=== PATIENT | female | born 1975 | race Hispanic/Latino ===

== ENCOUNTER 2019-03-22 10:23 | Emergency (ER) | payer OTHER, SELFPAY ==
[2019-03-22 10:51] LABS: #Eosinphils 0.1 thou/uL (0.0-0.7); #Lymphocytes 0.9 thou/uL (1.20-3.40); #Monocytes 0.3 thou/uL (0.11-0.59); #Neutrophils 7.6 thou/uL (1.40-6.50); %Basophils 0.5 % (0.0-1.0); %Eosinophils 0.7 % (0.0-10.0); %Lymphocytes 9.9 % (21.0-51.0); %Monocytes 3.5 % (0.0-10.0); %Neutrophils 85.3 % (42.0-75.0); Hemoglobin 13.6 g/dL (12.0-16.0); Mean Corpuscular HGB CONC 34.1 g/dL (32.0-36.0); Mean Corpuscular Hemoglobin 27.7 pg (27.0-31.0); Mean Platelet Volume 8.7 fL (7.4-10.4); Platelet Count 291 thou/uL (130-400); RBC Distribution Width 14.7 % (11.5-14.5); Red Blood Cell (RBC) Count 4.92 mill/uL (4.20-5.40); White Blood Cell (WBC) Count 8.9 thou/uL (4.8-10.8)
[2019-03-22] MEDS ORDERED: Morphine 4 MG/ML VIAL ONE (11:02)
[2019-03-22] MEDS ORDERED: Ondansetron PF 4 MG/2 ML Vial ONE (11:02)
--- NOTE | 2019-03-22 11:10 | RAD ---
RADIOGRAPH CHEST 1 VIEW: DATE: 03/22/2019 HISTORY: 43-year-old female with chest pain FINDINGS: There are no airspace densities, pulmonary edema, pneumothorax, or cardiomegaly. The lateral costophr enic angles are sharp. IMPRESSION: No acute cardiopulmonary findings.
[2019-03-22 11:12] LABS: ALT (SGPT) 11 U/L (8-55); AST (SGOT) 16 U/L (5-34); Albumin 4.5 g/dL (3.5-5.0); Alkaline Phosphatase 103 U/L (40-110); Anion Gap 17 mmol/L (10-20); BUN (Urea Nitrogen) 9 mg/dL (7.0-18.7); Bilirubin, Total 0.7 mg/dL (0.2-1.2); CK (CPK) 36 U/L (29-168); Calc. Creatinine Clearance 0 mL/min (70-130); Calcium 9.7 mg/dL (7.8-10.44); Carbon Dioxide 20 mmol/L (22-29); Chloride 100 mmol/L (98-107); Estimated GFR-MDRD 87; Globulin 3.4 g/dL (2.4-3.5); Glucose 284 mg/dL (70-105); Lipase 10 U/L (8-78); Potassium 4.5 mmol/L (3.5-5.1); Protein, Total 7.9 g/dL (6.0-8.3); Sodium 132 mmol/L (136-145)
--- NOTE | 2019-03-22 12:17 | ULT ---
ULTRASOUND ABDOMEN LIMITED: (RIGHT UPPER QUADRANT) DATE: 03/22/2019 HISTORY: 43-year-old female with right upper quadrant abdominal pain FINDINGS: Gallbladder:Contains several gallstones, apparently immobile. Largest one is 20 mm. Wall thickness 3 mm. No pericholecystic fluid. Positive tenderness over gallbladder. Distended lumen. Common duct: 4 mm. Liver:Visualized portions have normal parenchymal echogenicity. Much of liver parenchyma obscured due to overlying bowel gas. Pancreas:Completely obscured by shadowing from overlying bowel gas. Right kidney:No hydronephrosis IMPRESSION: 1. Positive for cholelithiasis 2. Possibility of at least one of the gallstones lodged in the gallbladder body/neck junction.
[2019-03-22] MEDS ORDERED: Ketorolac Tromethamine 30 MG/ML VIAL ONE (12:43)
[2019-03-22 14:01] LABS: Bacteria/HPF 2+ HPF (None Seen); Bilirubin Negative (Negative); Blood, Urine Negative (Negative); Clarity Turbid (Clear); Glucose, Urine (Dipstick) Greater than 1000 mg/dL (Negative); Leukocyte Negative Leu/uL (Negative); Nitrite 2+ (Negative); Protein, Urine (Dipstick) Negative (Neg-Trace); RBC/HPF 0-3 HPF (0-3); Urobilinogen Normal mg/dL (Less than 2); WBC/HPF 0-3 HPF (0-3)
== END 2019-03-22 14:11 | disposition home or self-care (01) ==
LOC: ERS 10:23
DX: K80.20 Calculus of gallbladder without cholecystitis without obstruction (principal); E11.9 Type 2 diabetes mellitus without complications; Z79.4 Long term (current) use of insulin
CPT/HCPCS: 71045; 76705; 80053; 81003; 81015; 82550; 83690; 84484; 85025; 93005; 94760; 96361; 96374; 96375; J1885; J2270; J2405

== ENCOUNTER 2021-10-09 09:54 | Inpatient (IN) | payer MEDICAID, SELFPAY ==
[2021-10-09] MEDS ORDERED: Iopamidol-370 76% 500 ML 1 ML ONE (10:39)
[2021-10-09 10:46] LABS: #Lymphocytes 0.7 thou/uL (1.20-3.40); #Monocytes 0.9 thou/uL (0.11-0.59); #Neutrophils 11.1 thou/uL (1.40-6.50); %Eosinophils 0.3 % (0.0-10.0); %Lymphocytes 5.4 % (21.0-51.0); %Monocytes 7.3 % (0.0-10.0); %Neutrophils 87.1 % (42.0-75.0); Hemoglobin 13.3 g/dL (12.0-16.0); Mean Corpuscular Hemoglobin 29.8 pg (27.0-31.0); Mean Corpuscular Volume 90.1 fL (78.0-98.0); Mean Platelet Volume 7.9 fL (7.4-10.4); Platelet Count 226 thou/uL (130-400); RBC Distribution Width 13.7 % (11.5-14.5); Red Blood Cell (RBC) Count 4.48 mill/uL (4.20-5.40); White Blood Cell (WBC) Count 12.8 thou/uL (4.8-10.8)
[2021-10-09] MEDS ORDERED: Ondansetron PF 4 MG/2 ML Vial ONE (10:59)
[2021-10-09] MEDS ORDERED: Piperacillin/Tazobactam 4.5 GM VIAL ONE (11:00)
[2021-10-09 11:03] LABS: BHCG - Serum Negative (NEGATIVE); Pregs Control Background? CLEAR/WHITE (CLR/WHITE); Pregs Control Bar Appear? YES (CONTROL BAR)
[2021-10-09 11:06] LABS: ALT (SGPT) 51 U/L (8-55); AST (SGOT) 32 U/L (5-34); Albumin 3.9 g/dL (3.5-5.0); Alkaline Phosphatase 318 U/L (40-110); Anion Gap 16 mmol/L (10-20); BUN (Urea Nitrogen) 9 mg/dL (7.0-18.7); Bilirubin, Total 0.8 mg/dL (0.2-1.2); Calc. Creatinine Clearance 0 mL/min (70-130); Calcium 9.2 mg/dL (7.8-10.44); Carbon Dioxide 24 mmol/L (22-29); Chloride 96 mmol/L (98-107); Globulin 3.7 g/dL (2.4-3.5); Glucose 299 mg/dL (70-105); Lipase 4 U/L (8-78); Potassium 3.8 mmol/L (3.5-5.1); Protein, Total 7.6 g/dL (6.0-8.3); Sodium 132 mmol/L (136-145)
[2021-10-09 11:39] LABS: Bacteria/HPF 1+ HPF (None Seen); Bilirubin Negative (Negative); Blood, Urine Trace (Negative); Clarity Turbid (Clear); Glucose, Urine (Dipstick) 500 mg/dL (Negative); Ketone, Urine Trace mg/dL (Negative); Leukocyte 500 Leu/uL (Negative); Nitrite Negative (Negative); Protein, Urine (Dipstick) 70 mg/dL (Neg-Trace); Specific Gravity, Urine 1.015 (1.002-1.036); WBC/HPF Greater than 50 HPF (0-3)
[2021-10-09] MEDS ORDERED: cefTRIAXone\\ROCEPHIN 2 GM VIAL ONE (12:55)
[2021-10-09] MEDS ORDERED: VANCOMYCIN 2 GRAM/500 ML BAG 2 GM in Premix Bag 1 BAG IVPB SCH (13:00)
[2021-10-09 13:41] LABS: INR-International Normal Ratio 1.1; Prothrombin Time 14.1 sec (12.0-14.7)
[2021-10-09 13:42] LABS: PTT 29.1 sec (22.9-36.1)
[2021-10-09] MEDS ORDERED: Ondansetron PF 4 MG/2 ML Vial IVP PRN (13:55)
[2021-10-09] MEDS ORDERED: Senokot S 8.6-50 MG TAB PO PRN (13:55)
[2021-10-09] MEDS ORDERED: Dextrose 50% Abboject 50 ML SYRINGE SLOW IVP PRN (13:55)
[2021-10-09] MEDS ORDERED: Ondansetron ODT 4 MG TAB PO PRN (13:55)
[2021-10-09] MEDS ORDERED: Dextrose 5% in Water 1,000 ML IV PRN (13:55)
[2021-10-09] MEDS ORDERED: Calcium Carbonate 500 MG ChewTAB PO PRN (13:55)
[2021-10-09] MEDS ORDERED: Electrolyte Replacement Protocol 1 EACH FS SCH (14:00)
[2021-10-09] MEDS ORDERED: Pantoprazole 40 MG VIAL IVP SCH (15:00)
[2021-10-09 16:19] VITALS: BMI 27.4
[2021-10-09] MEDS ORDERED: Ketorolac Tromethamine 30 MG/ML VIAL IVP SCH (16:45)
[2021-10-09] MEDS ORDERED: Piperacillin/Tazobactam 3.375 GM in Sodium Chloride 0.9% 100 ML IVPB SCH (17:00)
[2021-10-09] MEDS: Acetaminophen 325 MG TAB PO PRN ×2 (17:10→21:12)
[2021-10-09] MEDS: Piperacillin/Tazobactam 3.375 GM in Sodium Chloride 0.9% 100 ML IVPB SCH (17:12)
[2021-10-09] MEDS: NS 0.9% w/ 20 MEQ KCL 1,000 ML/1,000 ML BAG IV SCH ×2 (17:17→23:00)
[2021-10-09] MEDS: Insulin Regular 300 UNITS/3 ML VIAL SC PRN (21:13)
[2021-10-09] MEDS: Insulin Glargine 30 UNITS/0.3 ML VIAL SC SCH (21:15)
[2021-10-09] MEDS: Pantoprazole 40 MG VIAL IVP SCH (21:15)
[2021-10-10] MEDS: Piperacillin/Tazobactam 3.375 GM in Sodium Chloride 0.9% 100 ML IVPB SCH ×3 (00:59→18:18)
[2021-10-10] MEDS: NS 0.9% w/ 20 MEQ KCL 1,000 ML/1,000 ML BAG IV SCH ×3 (06:00→22:00)
[2021-10-10 06:13] LABS: ALT (SGPT) 34 U/L (8-55); AST (SGOT) 21 U/L (5-34); Alkaline Phosphatase 252 U/L (40-110); Anion Gap 11 mmol/L (10-20); BUN (Urea Nitrogen) 11 mg/dL (7.0-18.7); Bilirubin, Total 0.7 mg/dL (0.2-1.2); Calc. Creatinine Clearance 81 mL/min (70-130); Carbon Dioxide 26 mmol/L (22-29); Chloride 105 mmol/L (98-107); Glucose 175 mg/dL (70-105); Magnesium 1.7 mg/dL (1.6-2.6); Potassium 3.7 mmol/L (3.5-5.1); Sodium 138 mmol/L (136-145)
[2021-10-10 06:14] LABS: #Lymphocytes 0.9 thou/uL (1.20-3.40); #Monocytes 0.9 thou/uL (0.11-0.59); #Neutrophils 8.7 thou/uL (1.40-6.50); %Basophils 0.1 % (0.0-1.0); %Eosinophils 0.5 % (0.0-10.0); %Lymphocytes 8.8 % (21.0-51.0); %Monocytes 8.1 % (0.0-10.0); %Neutrophils 82.5 % (42.0-75.0); Hemoglobin 10.7 g/dL (12.0-16.0); Mean Corpuscular HGB CONC 33.6 g/dL (32.0-36.0); Mean Corpuscular Hemoglobin 30.9 pg (27.0-31.0); Mean Platelet Volume 8.4 fL (7.4-10.4); Platelet Count 200 thou/uL (130-400); RBC Distribution Width 13.8 % (11.5-14.5); Red Blood Cell (RBC) Count 3.47 mill/uL (4.20-5.40); White Blood Cell (WBC) Count 10.6 thou/uL (4.8-10.8)
[2021-10-10] MEDS: Insulin Regular 300 UNITS/3 ML VIAL SC PRN ×2 (07:16→21:45)
[2021-10-10] MEDS ORDERED: Magnesium 2 GM/50 ML(in water) 2 GM in Premix Bag 1 BAG IVPB SCH (09:00)
[2021-10-10] MEDS: Pantoprazole 40 MG VIAL IVP SCH ×2 (09:14→20:40)
[2021-10-10] MEDS ORDERED: hydrALAZINE 20 MG/ML VIAL SLOW IVP PRN (20:12)
[2021-10-10] MEDS: Morphine 2 MG/ML VIAL SLOW IVP PRN (20:45)
[2021-10-10] MEDS: Insulin Glargine 30 UNITS/0.3 ML VIAL SC SCH (20:48)
[2021-10-11] MEDS: Piperacillin/Tazobactam 3.375 GM in Sodium Chloride 0.9% 100 ML IVPB SCH ×3 (00:06→17:14)
[2021-10-11] MEDS: NS 0.9% w/ 20 MEQ KCL 1,000 ML/1,000 ML BAG IV SCH ×2 (06:00→13:36)
[2021-10-11 06:16] LABS: #Eosinphils 0.1 thou/uL (0.0-0.7); #Lymphocytes 1.2 thou/uL (1.20-3.40); #Monocytes 0.6 thou/uL (0.11-0.59); #Neutrophils 6.2 thou/uL (1.40-6.50); %Eosinophils 0.8 % (0.0-10.0); %Lymphocytes 14.6 % (21.0-51.0); %Monocytes 7.2 % (0.0-10.0); %Neutrophils 77.3 % (42.0-75.0); Hemoglobin 10.2 g/dL (12.0-16.0); Mean Corpuscular HGB CONC 32.5 g/dL (32.0-36.0); Mean Corpuscular Hemoglobin 28.6 pg (27.0-31.0); Mean Platelet Volume 2.5 fL (7.4-10.4); Platelet Count 232 thou/uL (130-400); RBC Distribution Width 15.9 % (11.5-14.5); Red Blood Cell (RBC) Count 3.58 mill/uL (4.20-5.40)
[2021-10-11 06:43] LABS: ALT (SGPT) 29 U/L (8-55); AST (SGOT) 21 U/L (5-34); Alkaline Phosphatase 256 U/L (40-110); Anion Gap 10 mmol/L (10-20); BUN (Urea Nitrogen) 5 mg/dL (7.0-18.7); Bilirubin, Total 0.4 mg/dL (0.2-1.2); Calc. Creatinine Clearance 106 mL/min (70-130); Calcium 8.5 mg/dL (7.8-10.44); Carbon Dioxide 26 mmol/L (22-29); Chloride 106 mmol/L (98-107); Glucose 125 mg/dL (70-105); Potassium 3.3 mmol/L (3.5-5.1); Sodium 139 mmol/L (136-145)
[2021-10-11] MEDS ORDERED: HYDROcodone/Acetaminophen 5/325 mg Tablet PO PRN (07:07)
[2021-10-11] MEDS ORDERED: Potassium Chloride 20 MEQ in Premix Bag 1 BAG IVPB SCH (08:00)
[2021-10-11] MEDS: Pantoprazole 40 MG VIAL IVP SCH ×2 (08:02→21:57)
[2021-10-11] MEDS: HYDROcodone/Acetaminophen 5/325 mg Tablet PO PRN ×3 (08:03→21:58)
[2021-10-11] MEDS: Insulin Regular 300 UNITS/3 ML VIAL SC PRN ×2 (11:35→17:12)
[2021-10-11] MEDS: Potassium Chloride 20 MEQ in Premix Bag 1 BAG IVPB SCH ×2 (11:37→15:02)
[2021-10-11] MEDS ORDERED: Indomethacin 50 MG SUPP PR SCH (15:30)
[2021-10-11] MEDS: Insulin Glargine 30 UNITS/0.3 ML VIAL SC SCH (21:57)
[2021-10-11] MEDS: Morphine 2 MG/ML VIAL SLOW IVP PRN (22:11)
[2021-10-12] MEDS: Piperacillin/Tazobactam 3.375 GM in Sodium Chloride 0.9% 100 ML IVPB SCH ×4 (01:52→23:55)
[2021-10-12] MEDS: HYDROcodone/Acetaminophen 5/325 mg Tablet PO PRN ×3 (01:52→23:52)
[2021-10-12 06:15] LABS: #Eosinphils 0.2 thou/uL (0.0-0.7); #Lymphocytes 1.6 thou/uL (1.20-3.40); #Monocytes 0.7 thou/uL (0.11-0.59); #Neutrophils 4.3 thou/uL (1.40-6.50); %Basophils 0.2 % (0.0-1.0); %Eosinophils 2.5 % (0.0-10.0); %Lymphocytes 24.2 % (21.0-51.0); %Monocytes 9.9 % (0.0-10.0); %Neutrophils 63.2 % (42.0-75.0); Hemoglobin 11.1 g/dL (12.0-16.0); Mean Corpuscular HGB CONC 32.2 g/dL (32.0-36.0); Mean Corpuscular Hemoglobin 29.8 pg (27.0-31.0); Mean Corpuscular Volume 92.6 fL (78.0-98.0); Mean Platelet Volume 7.7 fL (7.4-10.4); Platelet Count 250 thou/uL (130-400); Red Blood Cell (RBC) Count 3.71 mill/uL (4.20-5.40); White Blood Cell (WBC) Count 6.7 thou/uL (4.8-10.8)
[2021-10-12 06:38] LABS: ALT (SGPT) 29 U/L (8-55); AST (SGOT) 24 U/L (5-34); Albumin 3.1 g/dL (3.5-5.0); Alkaline Phosphatase 307 U/L (40-110); Anion Gap 11 mmol/L (10-20); BUN (Urea Nitrogen) 4 mg/dL (7.0-18.7); Bilirubin, Total 0.4 mg/dL (0.2-1.2); Calc. Creatinine Clearance 111 mL/min (70-130); Calcium 8.4 mg/dL (7.8-10.44); Carbon Dioxide 25 mmol/L (22-29); Chloride 110 mmol/L (98-107); Globulin 3.1 g/dL (2.4-3.5); Glucose 79 mg/dL (70-105); Potassium 3.6 mmol/L (3.5-5.1); Protein, Total 6.2 g/dL (6.0-8.3); Sodium 142 mmol/L (136-145)
[2021-10-12] MEDS ORDERED: Iopamidol 30 ML ONE (09:34)
[2021-10-12] MEDS ORDERED: Indomethacin 50 MG SUPP ONE (09:34)
[2021-10-12] MEDS ORDERED: fentaNYL Citrate/PF 100 MCG/2 ML SYRINGE ONE (09:41)
[2021-10-12] MEDS ORDERED: Rocuronium Bromide 10 MG/ML (10ML VIAL) ONE (09:45)
[2021-10-12] MEDS ORDERED: Lidocaine 1% PF 5 ML VIAL ONE (09:45)
[2021-10-12] MEDS ORDERED: Ondansetron PF 4 MG/2 ML Vial ONE (09:45)
[2021-10-12] MEDS ORDERED: PROPOFOL 200 MG/20 ML VIAL ONE (09:45)
[2021-10-12] MEDS ORDERED: diphenhydrAMINE 50 MG/ML VIAL ONE (09:45)
[2021-10-12] MEDS ORDERED: PHENYLEPHRINE-NS 100 MCG/ML 10 ML SYRINGE ONE (09:45)
[2021-10-12] MEDS ORDERED: Glycopyrrolate 0.2 MG/ML 5 ML SYRINGE ONE (09:45)
[2021-10-12] MEDS ORDERED: Ondansetron HCl/PF 4 MG/2 ML Vial IVP PRN (10:43)
[2021-10-12] MEDS ORDERED: Promethazine HCl 25 MG/ML VIAL IVPB PRN (10:43)
[2021-10-12] MEDS ORDERED: Promethazine HCl 25 MG/ML VIAL IM PRN (10:43)
[2021-10-12] MEDS ORDERED: Labetalol HCl 100 MG/20 ML VIAL ONE (10:50)
[2021-10-12] MEDS: Pantoprazole 40 MG VIAL IVP SCH ×2 (12:05→20:42)
[2021-10-12] MEDS: Insulin Regular 300 UNITS/3 ML VIAL SC PRN (17:45)
[2021-10-12] MEDS ORDERED: Sodium Chloride 0.9% 1,000 ML IV SCH (19:15)
[2021-10-12] MEDS: Insulin Glargine 30 UNITS/0.3 ML VIAL SC SCH (20:40)
[2021-10-12] MEDS: metFORMIN 500 MG TAB PO SCH (20:40)
[2021-10-12] MEDS: glipiZIDE 10 MG TAB PO SCH (20:40)
[2021-10-13] MEDS: HYDROcodone/Acetaminophen 5/325 mg Tablet PO PRN ×2 (05:07→16:41)
[2021-10-13 06:19] LABS: ALT (SGPT) 22 U/L (8-55); AST (SGOT) 13 U/L (5-34); Alkaline Phosphatase 300 U/L (40-110); Bilirubin, Direct 0.2 mg/dL (0.1-0.3); Bilirubin, Total 0.3 mg/dL (0.2-1.2); Protein, Total 5.9 g/dL (6.0-8.3)
[2021-10-13] MEDS ORDERED: Sodium Chloride 0.9% 1,000 ML IV SCH (08:00)
[2021-10-13] MEDS: Pantoprazole 40 MG VIAL IVP SCH ×2 (08:03→21:59)
[2021-10-13] MEDS: Piperacillin/Tazobactam 3.375 GM in Sodium Chloride 0.9% 100 ML IVPB SCH (08:04)
[2021-10-13] MEDS: Lisinopril 10 MG TAB PO SCH (08:05)
[2021-10-13] MEDS: glipiZIDE 10 MG TAB PO SCH ×2 (08:05→21:58)
[2021-10-13] MEDS: metFORMIN 500 MG TAB PO SCH ×2 (08:05→21:58)
[2021-10-13] MEDS ORDERED: Lidocaine 1% w/Epinephrine 1:100K 20 ML VIAL ONE (13:17)
[2021-10-13] MEDS ORDERED: Bupivacaine PF 0.5% 30 ML VIAL ONE (13:17)
[2021-10-13] MEDS ORDERED: fentaNYL Citrate/PF 100 MCG/2 ML SYRINGE ONE ×4 (13:19→15:56)
[2021-10-13] MEDS ORDERED: HYDROmorphone 0.5 MG/0.5 ML SYRINGE ONE (13:19)
[2021-10-13] MEDS ORDERED: Glycopyrrolate 0.2 MG/ML 5 ML SYRINGE ONE (14:10)
[2021-10-13] MEDS ORDERED: Ondansetron PF 4 MG/2 ML Vial ONE (14:10)
[2021-10-13] MEDS ORDERED: PROPOFOL 200 MG/20 ML VIAL ONE (14:10)
[2021-10-13] MEDS ORDERED: Lidocaine 1% PF 5 ML VIAL ONE (14:10)
[2021-10-13] MEDS ORDERED: Rocuronium Bromide 10 MG/ML (10ML VIAL) ONE (14:10)
[2021-10-13] MEDS ORDERED: Dexamethasone 20 MG/5 ML VIAL ONE (14:10)
[2021-10-13] MEDS ORDERED: Promethazine HCl 25 MG/ML VIAL IVPB PRN (15:38)
[2021-10-13] MEDS ORDERED: Ondansetron HCl/PF 4 MG/2 ML Vial IVP PRN (15:38)
[2021-10-13] MEDS ORDERED: Promethazine HCl 25 MG/ML VIAL IM PRN (15:38)
[2021-10-13] MEDS ORDERED: Meperidine HCl/PF 25 MG/ML VIAL SLOW IVP PRN (15:38)
[2021-10-13] MEDS ORDERED: Morphine Sulfate 2 MG/ML SYRINGE SLOW IVP PRN (15:38)
[2021-10-13] MEDS ORDERED: HYDROmorphone 2 MG/ML VIAL SLOW IVP PRN (15:38)
[2021-10-13] MEDS ORDERED: PACU-Morphine 4MG/ML VIAL SLOW IVP PRN (15:38)
[2021-10-13] MEDS ORDERED: Acetaminophen 500 MG TAB PO PRN (16:03)
[2021-10-13] MEDS ORDERED: Ibuprofen 600 MG TAB PO PRN (16:03)
[2021-10-13] MEDS ORDERED: Ciprofloxacin 500 MG TAB PO SCH (16:30)
[2021-10-13] MEDS: Ciprofloxacin 500 MG TAB PO SCH (21:58)
[2021-10-13] MEDS: Insulin Glargine 30 UNITS/0.3 ML VIAL SC SCH (21:59)
[2021-10-13] MEDS: traMADol HCl 50 MG TAB PO PRN (22:01)
[2021-10-14] MEDS: traMADol HCl 50 MG TAB PO PRN (03:41)
[2021-10-14] MEDS: Ciprofloxacin 500 MG TAB PO SCH (06:28)
[2021-10-14 06:40] LABS: #Lymphocytes 1.3 thou/uL (1.20-3.40); #Monocytes 0.7 thou/uL (0.11-0.59); #Neutrophils 6.9 thou/uL (1.40-6.50); %Basophils 0.3 % (0.0-1.0); %Eosinophils 0.3 % (0.0-10.0); %Lymphocytes 14.8 % (21.0-51.0); %Monocytes 7.6 % (0.0-10.0); Hemoglobin 10.2 g/dL (12.0-16.0); Mean Corpuscular HGB CONC 33.3 g/dL (32.0-36.0); Mean Corpuscular Hemoglobin 29.7 pg (27.0-31.0); Mean Corpuscular Volume 89.1 fL (78.0-98.0); Mean Platelet Volume 6.5 fL (7.4-10.4); Platelet Count 320 thou/uL (130-400); RBC Distribution Width 14.3 % (11.5-14.5); Red Blood Cell (RBC) Count 3.44 mill/uL (4.20-5.40)
[2021-10-14 07:06] LABS: ALT (SGPT) 22 U/L (8-55); AST (SGOT) 28 U/L (5-34); Albumin 3.1 g/dL (3.5-5.0); Alkaline Phosphatase 270 U/L (40-110); Anion Gap 12 mmol/L (10-20); BUN (Urea Nitrogen) 6 mg/dL (7.0-18.7); Bilirubin, Total 0.3 mg/dL (0.2-1.2); Calc. Creatinine Clearance 108 mL/min (70-130); Calcium 8.5 mg/dL (7.8-10.44); Carbon Dioxide 27 mmol/L (22-29); Chloride 102 mmol/L (98-107); Glucose 106 mg/dL (70-105); Potassium 3.6 mmol/L (3.5-5.1); Protein, Total 6.1 g/dL (6.0-8.3); Sodium 137 mmol/L (136-145)
[2021-10-14] MEDS ORDERED: Polyethylene Glycol 3350 17 GM Packet PO SCH (09:00)
[2021-10-14] MEDS: Pantoprazole 40 MG VIAL IVP SCH (09:01)
[2021-10-14] MEDS: glipiZIDE 10 MG TAB PO SCH (09:01)
[2021-10-14] MEDS: Lisinopril 10 MG TAB PO SCH (09:01)
[2021-10-14] MEDS: metFORMIN 500 MG TAB PO SCH (09:01)
[2021-10-14 12:53] VITALS: BP 157/95; TEMP 97.8
== END 2021-10-14 14:00 | disposition home or self-care (01) | DRG 854 ==
LOC: ERS 09:54 → SURG A 13:40
PROVIDERS: ADMIT Internal Medicine; ATTEND Internal Medicine
PROC: 3E03329 Introduction of Other Anti-infective into Peripheral Vein, Percutaneous Approach (ICD-10-PCS; 2021-10-09)
PROC: 0FT44ZZ Resection of Gallbladder, Percutaneous Endoscopic Approach (ICD-10-PCS; principal; 2021-10-12)
PROC: 0F798ZZ Dilation of Common Bile Duct, Via Natural or Artificial Opening Endoscopic (ICD-10-PCS; 2021-10-12)
DX: A41.51 Sepsis due to Escherichia coli [E. coli] (principal); N10 Acute pyelonephritis; K80.66 Calculus of gallbladder and bile duct with acute and chronic cholecystitis without obstruction; Z20.822 Contact with and (suspected) exposure to COVID-19; E66.9 Obesity, unspecified; E11.9 Type 2 diabetes mellitus without complications; R65.20 Severe sepsis without septic shock; K80.70 Calculus of gallbladder and bile duct without cholecystitis without obstruction; I10 Essential (primary) hypertension; E88.09 Other disorders of plasma-protein metabolism, not elsewhere classified; Z79.84 Long term (current) use of oral hypoglycemic drugs; Z79.899 Other long term (current) drug therapy; Z68.27 Body mass index [BMI] 27.0-27.9, adult
CPT/HCPCS: 36415; 36416; 71045; 74177; 74330; 76705; 80053; 80076; 81003; 81015; 83605; 83690; 83735; 84703; 85025; 85610; 85730; 87040; 87077; 87086; 87149; 87186; 88304; 93005; 96361; 96365; 96366; 96367; 96375; C1713; C9113; J0360; J0696; J1100; J1170; J1200; J1815; J1885; J2270; J2405; J2543; J2704; J3370; J3475; J3480; J3490; J7050; J7070; Q0162; Q9967; S0020; U0003; U0005

== ENCOUNTER 2022-04-30 14:33 | Observation (INO) | payer MEDICAID, SELFPAY ==
[2022-04-30] MEDS ORDERED: Lidocaine 1% PF 5 ML VIAL ONE (15:23)
[2022-04-30] MEDS ORDERED: CEFAZOLIN 2 GM VIAL ONE ×3 (16:15→21:11)
[2022-04-30 16:36] LABS: #Eosinphils 0.2 thou/uL (0.0-0.7); #Lymphocytes 1.3 thou/uL (1.20-3.40); #Monocytes 0.4 thou/uL (0.11-0.59); #Neutrophils 5.4 thou/uL (1.40-6.50); %Basophils 0.4 % (0.0-1.0); %Eosinophils 2.5 % (0.0-10.0); %Lymphocytes 17.9 % (21.0-51.0); %Monocytes 5.4 % (0.0-10.0); %Neutrophils 73.9 % (42.0-75.0); Hemoglobin 13.3 g/dL (12.0-16.0); Mean Corpuscular Hemoglobin 27.3 pg (27.0-31.0); Mean Corpuscular Volume 82.8 fl (78.0-98.0); Mean Platelet Volume 8.8 fL (7.4-10.4); Platelet Count 344 10x3/uL (130-400); RBC Distribution Width 13.9 % (11.5-14.5); Red Blood Cell (RBC) Count 4.86 mill/uL (4.20-5.40); White Blood Cell (WBC) Count 7.3 10x3/uL (4.8-10.8)
[2022-04-30 16:59] LABS: ALT (SGPT) 16 U/L (8-55); AST (SGOT) 14 U/L (5-34); Albumin 4.3 g/dL (3.5-5.0); Alkaline Phosphatase 105 U/L (40-110); Anion Gap 15 mmol/L (10-20); BUN (Urea Nitrogen) 18 mg/dL (7.0-18.7); Bilirubin, Total 0.4 mg/dL (0.2-1.2); Calc. Creatinine Clearance 0 mL/min (70-130); Calcium 10.1 mg/dL (7.8-10.44); Carbon Dioxide 23 mmol/L (22-29); Chloride 98 mmol/L (98-107); Estimated GFR 50; Globulin 3.8 g/dL (2.4-3.5); Potassium 4.3 mmol/L (3.5-5.1); Protein, Total 8.1 g/dL (6.0-8.3); Sodium 132 mmol/L (136-145)
[2022-04-30 17:03] LABS: Glucose 518 mg/dL (70-105)
[2022-04-30] MEDS ORDERED: Gentamicin Sulfate 80 MG in Premix Bag 1 BAG IVPB SCH (17:15)
[2022-04-30] MEDS ORDERED: Ondansetron PF 4 MG/2 ML Vial ONE (17:18)
[2022-04-30] MEDS ORDERED: Morphine 4 MG/ML VIAL ONE (17:18)
[2022-04-30] MEDS ORDERED: Ketorolac Tromethamine 30 MG/ML VIAL IVP PRN (20:08)
[2022-04-30] MEDS ORDERED: Meperidine HCl/PF 25 MG/ML VIAL IM PRN (20:08)
[2022-04-30] MEDS ORDERED: TETANUS, DIPHTHERIA TOX,ADULT (TDVAX) 0.5 ML VIAL IM ONE (20:09)
[2022-04-30] MEDS ORDERED: HYDROcodone/Acetaminophen 5/325 mg Tablet PO PRN (20:09)
[2022-04-30] MEDS ORDERED: Morphine 4 MG/ML VIAL SLOW IVP PRN (20:09)
[2022-04-30] MEDS ORDERED: Acetaminophen/Codeine 30-300mg Tablet PO PRN (20:09)
[2022-04-30] MEDS ORDERED: Bisacodyl 10 MG SUPP PR PRN (20:09)
[2022-04-30] MEDS ORDERED: Milk Of Magnesia 30 ML UDCUP PO PRN (20:09)
[2022-04-30] MEDS ORDERED: traMADol HCl 50 MG TAB PO PRN (20:09)
[2022-04-30] MEDS ORDERED: Acetaminophen 325 MG TAB PO PRN (20:09)
[2022-04-30] MEDS ORDERED: Ondansetron PF 4 MG/2 ML Vial IVP PRN (20:09)
[2022-04-30] MEDS ORDERED: Communication Order-Pharmacy FS PRN (20:15)
[2022-04-30] MEDS ORDERED: Bupivacaine PF 0.5% 30 ML VIAL ONE (22:09)
[2022-04-30] MEDS ORDERED: Thrombin 5000 UNITS/5 ML VIAL ONE (22:09)
[2022-04-30] MEDS ORDERED: Neomycin-Polymyxin 1 ML AMP ONE (22:09)
[2022-04-30] MEDS ORDERED: Bacitracin Zinc Ointment 30 gm TUBE ONE (22:09)
[2022-04-30] MEDS ORDERED: Mineral Oil Sterile 10 ML VIAL ONE (22:09)
[2022-04-30 23:34] LABS: Pregnancy Test - Urine (BHCG) Negative (Negative); Pregu Control Background? CLEAR/WHITE (CLR/WHITE); Pregu Control Bar Appear? YES (CONTROL BAR); Specific Gravity 1.025 (1.002-1.036)
[2022-05-01] LABS: SARS-CoV-2 NAA Rapid Test Not Detected (NotDetected)
[2022-05-01] MEDS ORDERED: Ondansetron PF 4 MG/2 ML Vial ONE (01:01)
[2022-05-01] MEDS ORDERED: PROPOFOL 200 MG/20 ML VIAL ONE (01:01)
[2022-05-01] MEDS ORDERED: PHENYLEPHRINE-NS 100 MCG/ML 10 ML SYRINGE ONE (01:01)
[2022-05-01] MEDS ORDERED: Succinylcholine Chloride 100 MG/5 ML SYRINGE FS ONE (01:01)
[2022-05-01] MEDS ORDERED: ePHEDrine 50 MG/ML VIAL ONE (01:01)
[2022-05-01] MEDS ORDERED: Lidocaine 1% PF 5 ML VIAL ONE (01:01)
[2022-05-01] MEDS ORDERED: Promethazine HCl 25 MG/ML VIAL IVPB PRN (02:21)
[2022-05-01] MEDS ORDERED: Ondansetron HCl/PF 4 MG/2 ML Vial IVP PRN (02:21)
[2022-05-01] MEDS ORDERED: Promethazine HCl 25 MG/ML VIAL IM PRN (02:21)
[2022-05-01] MEDS ORDERED: Fentanyl 100 MCG/2 ML VIAL ONE (02:26)
[2022-05-01 03:12] VITALS: BMI 28.0
[2022-05-01] MEDS: Aspirin 81 mg Enteric Coated Tablet PO SCH ×2 (03:47→10:20)
[2022-05-01] MEDS ORDERED: Vancomycin 1 GM in Premix Bag 1 BAG IVPB SCH (04:00)
[2022-05-01] MEDS ORDERED: Dextrose 50% Abboject 50 ML SYRINGE IVP PRN (05:00)
[2022-05-01] MEDS ORDERED: Dextrose 5% in Water 1,000 ML IV PRN (05:00)
[2022-05-01] MEDS: HumaLOG 300 UNITS/3 ML VIAL SC PRN ×2 (05:21→13:01)
[2022-05-01 06:39] LABS: #Eosinphils 0.2 thou/uL (0.0-0.7); #Lymphocytes 1.3 thou/uL (1.20-3.40); #Monocytes 0.5 thou/uL (0.11-0.59); #Neutrophils 4.9 thou/uL (1.40-6.50); %Basophils 0.5 % (0.0-1.0); %Eosinophils 2.5 % (0.0-10.0); %Lymphocytes 18.7 % (21.0-51.0); %Monocytes 6.8 % (0.0-10.0); %Neutrophils 71.5 % (42.0-75.0); Hemoglobin 11.1 g/dL (12.0-16.0); Mean Corpuscular HGB CONC 32.9 g/dL (32.0-36.0); Mean Corpuscular Hemoglobin 27.6 pg (27.0-31.0); Mean Corpuscular Volume 83.8 fl (78.0-98.0); Mean Platelet Volume 8.6 fL (7.4-10.4); Platelet Count 257 10x3/uL (130-400); RBC Distribution Width 13.7 % (11.5-14.5); Red Blood Cell (RBC) Count 4.02 mill/uL (4.20-5.40); White Blood Cell (WBC) Count 6.9 10x3/uL (4.8-10.8)
[2022-05-01 16:48] VITALS: BP 150/88; TEMP 98.1
== END 2022-05-01 16:50 | disposition home or self-care (01) ==
LOC: ERS 14:33 → SDC/OP 05-01 01:16 → INTOOBSV 05-01 03:06 → SURG B 05-01 03:06
PROVIDERS: ADMIT Orthopaedic Surgery Hand Surgery; ATTEND Orthopaedic Surgery Hand Surgery
PROC: 0PBV0ZZ Excision of Left Finger Phalanx, Open Approach (ICD-10-PCS; principal; 2022-05-01)
PROC: 0HTQXZZ Resection of Finger Nail, External Approach (ICD-10-PCS; 2022-05-01)
PROC: 0HRGX73 Replacement of Left Hand Skin with Autologous Tissue Substitute, Full Thickness, External Approach (ICD-10-PCS; 2022-05-01)
DX: S62.637B Displaced fracture of distal phalanx of left little finger, initial encounter for open fracture (principal); E11.9 Type 2 diabetes mellitus without complications; F17.210 Nicotine dependence, cigarettes, uncomplicated; Z79.4 Long term (current) use of insulin; Z79.84 Long term (current) use of oral hypoglycemic drugs; Z79.899 Other long term (current) drug therapy; Z20.822 Contact with and (suspected) exposure to COVID-19; W22.8XXA Striking against or struck by other objects, initial encounter
CPT/HCPCS: 36415; 36416; 80053; 81025; 85025; 90714; J1580; J1885; J2270; J2405; J2704; J3010; J3370-JW; J3490; S0020; U0002

== ENCOUNTER 2024-06-05 11:25 | Inpatient (IN) | payer SELFPAY ==
[2024-06-05] MEDS ORDERED: Iopamidol-370 76% 500 ML MDV (1 ML CHARGE) ONE (13:20)
[2024-06-05 13:37] LABS: #Basophils 0.03 10x3/uL (0.0-0.2); %Basophils 0.2 % (0.0-1.0); %Eosinophils 0.2 % (0.0-10.0); %Lymphocytes 4.8 % (21.0-51.0); %Monocytes 4.6 % (0.0-10.0); %Neutrophils 89.3 % (42.0-75.0); Hematocrit 33.9 % (36.0-47.0); Hemoglobin 11.3 g/dL (12.0-16.0); Mean Corpuscular HGB CONC 33.3 g/dL (32.0-36.0); Mean Corpuscular Hemoglobin 28.5 pg (27.0-31.0); Mean Corpuscular Volume 85.4 fL (78.0-98.0); Mean Platelet Volume 10.5 fL (7.4-10.4); Platelet Count 264 10x3/uL (130-400); RBC Distribution Width 14.1 % (11.5-14.5); Red Blood Cell (RBC) Count 3.97 mill/uL (4.20-5.40)
[2024-06-05 14:01] LABS: INR-International Normal Ratio 1.1
[2024-06-05 14:02] LABS: PTT 29.5 sec (22.9-36.1); Troponin I 0.045 ng/mL (< 0.028)
[2024-06-05] MEDS ORDERED: Acetaminophen 500 MG TAB ONE (14:13)
[2024-06-05 14:14] LABS: ALT (SGPT) 33 U/L (Less than 34); AST (SGOT) 17 U/L (11-34); Alkaline Phosphatase 223 U/L (40-110); Anion Gap 14 mmol/L (10-20); BUN (Urea Nitrogen) 17 mg/dL (7.0-18.7); Bilirubin, Total 0.5 mg/dL (0.3-1.2); Calc. Creatinine Clearance 0 mL/min (70-130); Calcium 9.6 mg/dL (7.8-10.44); Carbon Dioxide 25 mmol/L (22-29); Chloride 94 mmol/L (98-107); Estimated GFR 61; Globulin 4.6 g/dL (2.4-3.5); Glucose 488 mg/dL (70-105); Potassium 4.5 mmol/L (3.5-5.1); Protein, Total 7.6 g/dL (6.0-8.3); Sodium 128 mmol/L (136-145)
[2024-06-05] MEDS ORDERED: cefTRIAXone (ROCEPHIN) 1 GM VIAL ONE (14:20)
[2024-06-05] MEDS ORDERED: Sodium Chloride 0.9% 100 ML ONE (14:20)
[2024-06-05] MEDS ORDERED: Insulin Regular, Human 100 UNIT/ML 10 ML VIAL ONE (14:32)
[2024-06-05] MEDS ORDERED: Potassium Chloride 20 MEQ TAB ONE (14:32)
[2024-06-05 15:41] LABS: Bilirubin Negative (Negative); Blood, Urine 2+ (Negative); CAUTI Indications for Culture Dysuria,urgency,freq; Clarity Turbid (Clear); Glucose, Urine (Dipstick) Greater than 1000 mg/dL (Negative); Ketone, Urine Negative (Negative); Leukocyte 500 Leu/uL (Negative); Nitrite Negative (Negative); Protein, Urine (Dipstick) 30 mg/dL (Neg-Trace); Specific Gravity, Urine 1.027 (1.002-1.036); Urobilinogen Normal mg/dL (Less than 2); WBC/HPF Greater than 50 HPF (0-3); pH, Urine 5.5 (5.0-9.0)
[2024-06-05 15:45] LABS: Bacteria/HPF 1+ HPF (None Seen)
[2024-06-05 15:46] LABS: Urine Culture Reflex Yes Yes
[2024-06-05] MEDS ORDERED: Senokot S 8.6-50 MG TAB PO PRN (18:05)
[2024-06-05] MEDS ORDERED: Acetaminophen 325 MG TAB PO PRN (18:05)
[2024-06-05] MEDS: Famotidine 20 MG TAB PO SCH (21:46)
[2024-06-05] MEDS: Acetaminophen/Codeine 30-300mg Tablet PO PRN (21:46)
[2024-06-05] MEDS: Ondansetron ODT 4 MG TAB PO PRN (21:46)
[2024-06-05] MEDS: cefTRIAXone\\ROCEPHIN 1 GM in Sodium Chloride 0.9% 100 ML IVPB SCH (21:47)
[2024-06-06] MEDS ORDERED: Insulin Lispro 100 UNIT/ML 10 ML VIAL SC PRN (02:33)
[2024-06-06] MEDS ORDERED: Glucagon 1 MG/ML KIT IM PRN (02:33)
[2024-06-06] MEDS ORDERED: Dextrose 5% in Water 1,000 ML IV PRN (02:33)
[2024-06-06] MEDS ORDERED: Dextrose 50% Abboject 50 ML SYRINGE SLOW IVP PRN (02:33)
[2024-06-06] MEDS ORDERED: Acetaminophen 650 MG Suppository PR PRN (02:40)
[2024-06-06] MEDS ORDERED: Calcium Carbonate 500 MG ChewTAB PO PRN (02:40)
[2024-06-06] MEDS ORDERED: Acetaminophen 325 MG TAB PO PRN (02:40)
[2024-06-06 05:05] LABS: #Basophils Less than 0.03 10x3/uL (0.0-0.2); %Basophils 0.1 % (0.0-1.0); %Eosinophils 0.8 % (0.0-10.0); %Lymphocytes 6.8 % (21.0-51.0); %Monocytes 7.6 % (0.0-10.0); %Neutrophils 84.4 % (42.0-75.0); Hematocrit 31.2 % (36.0-47.0); Hemoglobin 10.4 g/dL (12.0-16.0); Mean Corpuscular HGB CONC 33.3 g/dL (32.0-36.0); Mean Corpuscular Hemoglobin 28.7 pg (27.0-31.0); Mean Corpuscular Volume 86.2 fL (78.0-98.0); Mean Platelet Volume 10.4 fL (7.4-10.4); Platelet Count 221 10x3/uL (130-400); RBC Distribution Width 14.4 % (11.5-14.5); Red Blood Cell (RBC) Count 3.62 mill/uL (4.20-5.40)
[2024-06-06 05:28] LABS: Anion Gap 11 mmol/L (10-20); BUN (Urea Nitrogen) 10 mg/dL (7.0-18.7); Calc. Creatinine Clearance 92 mL/min (70-130); Calcium 8.5 mg/dL (7.8-10.44); Carbon Dioxide 23 mmol/L (22-29); Chloride 100 mmol/L (98-107); Estimated GFR 85; Glucose 343 mg/dL (70-105); Potassium 4.3 mmol/L (3.5-5.1); Sodium 130 mmol/L (136-145)
[2024-06-06 05:33] LABS: Hemoglobin A1c Greater than 14.0 % (4.0-6.0)
[2024-06-06] MEDS: Insulin Lispro 100 UNIT/ML 10 ML VIAL SC PRN (05:36)
[2024-06-06] MEDS: Enoxaparin 40 MG (0.4 mL) SYRINGE SC SCH (08:48)
[2024-06-06] MEDS: Lisinopril 10 MG TAB PO SCH (08:49)
[2024-06-06] MEDS: metFORMIN 500 MG TAB PO SCH ×2 (08:49→15:31)
[2024-06-06] MEDS: Atorvastatin Calcium 40 MG TAB PO SCH (08:49)
[2024-06-06] MEDS ORDERED: cefTRIAXone\\ROCEPHIN 2 GM in Sodium Chloride 0.9% 100 ML IVPB SCH (09:00)
[2024-06-06] MEDS: cefTRIAXone\\ROCEPHIN 2 GM in Sodium Chloride 0.9% 100 ML IVPB SCH (14:19)
[2024-06-06] MEDS: glipiZIDE 10 MG TAB PO SCH (15:32)
[2024-06-07 05:56] LABS: #Basophils 0.03 10x3/uL (0.0-0.2); %Basophils 0.4 % (0.0-1.0); %Eosinophils 3.3 % (0.0-10.0); %Lymphocytes 14.6 % (21.0-51.0); %Monocytes 10.3 % (0.0-10.0); Hematocrit 30.9 % (36.0-47.0); Mean Corpuscular HGB CONC 32.4 g/dL (32.0-36.0); Mean Corpuscular Hemoglobin 28.4 pg (27.0-31.0); Mean Corpuscular Volume 87.8 fL (78.0-98.0); Mean Platelet Volume 9.9 fL (7.4-10.4); Platelet Count 262 10x3/uL (130-400); RBC Distribution Width 14.6 % (11.5-14.5); Red Blood Cell (RBC) Count 3.52 mill/uL (4.20-5.40)
[2024-06-07 07:10] LABS: Anion Gap 10 mmol/L (10-20); BUN (Urea Nitrogen) 12 mg/dL (7.0-18.7); Calc. Creatinine Clearance 92 mL/min (70-130); Calcium 8.6 mg/dL (7.8-10.44); Carbon Dioxide 27 mmol/L (22-29); Chloride 99 mmol/L (98-107); Estimated GFR 85; Glucose 269 mg/dL (70-105); Potassium 4.2 mmol/L (3.5-5.1); Sodium 132 mmol/L (136-145)
[2024-06-07 08:14] LABS: Troponin I 0.046 ng/mL (< 0.028)
[2024-06-07 11:18] VITALS: BP 130/76; TEMP 98
== END 2024-06-07 13:10 | disposition home or self-care (01) | DRG 872 ==
LOC: ERS 11:25 → OBS 18:32
PROVIDERS: ADMIT Student in an Organized Health Care Education/Training Program; ATTEND Hospitalist
DX: A41.51 Sepsis due to Escherichia coli [E. coli] (principal); N17.9 Acute kidney failure, unspecified; N10 Acute pyelonephritis; R65.20 Severe sepsis without septic shock; I10 Essential (primary) hypertension; R30.0 Dysuria; E78.5 Hyperlipidemia, unspecified; Z90.49 Acquired absence of other specified parts of digestive tract; R79.89 Other specified abnormal findings of blood chemistry; E11.65 Type 2 diabetes mellitus with hyperglycemia
CPT/HCPCS: 36415; 36416; 71045; 74177; 80048; 80053; 81001; 82010; 83036; 83605; 84145; 84484; 85025; 85610; 85730; 87040; 87077; 87086; 87149; 87186; 93005; 94760; J0696; J1650; J1815; Q0162; Q9967